=== PATIENT | female | born 2000 | race African-American/Black ===

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

== ENCOUNTER 2021-01-17 13:49 | Emergency (ER) | payer OTHER ==
[~2021-01-17] VITALS: Ht 165.1 cm; Wt 68.0 kg
[2021-01-17 13:53] VITALS: BP 128/81
[2021-01-17] MEDS ORDERED: BACITRACIN ZINC OINT UDPKT TOP ONE (14:15)
[2021-01-17] MEDS ORDERED: BO1 TP (14:27)
[2021-01-17] MEDS ORDERED: ACET-2708 MT (14:27)
[2021-01-17] MEDS: ACETAMINOPHEN 325MG TABLET PO ONE ×2 (14:39→14:41)
== END 2021-01-17 15:01 | disposition home or self-care (01) ==
LOC: ER 13:49
DX: S00.91XA Abrasion of unspecified part of head, initial encounter (principal); J45.909 Unspecified asthma, uncomplicated; V43.52XA Car driver injured in collision with other type car in traffic accident, initial encounter; Y93.9 Activity, unspecified; Y92.410 Unspecified street and highway as the place of occurrence of the external cause; R51.9 Headache, unspecified
CPT/HCPCS: 99283; A4217; Z7610